=== PATIENT | female | born 1975 | race Caucasian/White ===

== ENCOUNTER 2020-03-28 08:00 | Outpatient (REF) | payer MEDICAID, SELFPAY | END 2020-03-28 08:01 | disposition home or self-care (01) | LOC: HO.MDS 08:00 | PROVIDERS: PCP Internal Medicine; Visit Provider Internal Medicine | DX: D50.9 Iron deficiency anemia, unspecified (principal) | CPT/HCPCS: 96365; 96366; J1200; J1750; Q0163 ==

== ENCOUNTER 2020-04-02 19:00 | Emergency (ER) | payer MEDICAID, SELFPAY ==
--- NOTE | 2020-04-02 | ECG_ITS ---
Test Reason : CHEST PAIN Blood Pressure : / mmHG Vent. Rate : 079 BPM Atrial Rate : 079 BPM P-R Int : 168 ms QRS Dur : 082 ms QT Int : 376 ms P-R-T Axes : 053 043 049 degrees QTc Int : 431 ms Normal sinus rhythm Normal ECG When compared with ECG of 06-JUN-2018 22:05, No significant change was found Referred By: Generic ED Physician Electronically Signed By:SCOTTIE ROBERTSON MD
[2020-04-02 19:54] VITALS: BP 144/78; PULSE 77; RESP 16; TEMP 37.1; O2SAT 100; BMI 31.6
[2020-04-02 21:05] VITALS: BP 138/58; PULSE 75; RESP 18; TEMP 36.9; O2SAT 100
--- NOTE | 2020-04-02 21:17 | ED_ITS ---
HPI - Chest Pain General Chief Complaint: Chest Pain Stated Complaint: CHEST PAIN Time Seen by Provider: 04/02/20 21:17 History of Present Illness HPI narrative: This is a 45-year-old female with history of hypertension diabetes and presents with 1 week of intermittent tightness of the chest that lasts anywhere from 15-30 minutes there is no association with time of day or activity. These episodes are not associated with dizziness, headache, nausea, diaphoresis and they do not radiate anywhere. In addition, patient denies any fevers, chills, shortness of breath, sore throat, GI symptoms, or symptoms. She does self endorse that she return from [place] on 03/13 and was COVID-19 tested at that time and found to be negative. Related Data Previous Rx's Medication Instructions Recorded alum-mag hydroxide-simeth [Maalox 20 ml PO TID #1 ea 04/02/20 Maximum Strength] alum-mag hydroxide-simeth [Maalox 20 ml PO TID #1 ea 04/03/20 Maximum Strength] Allergies Allergy/AdvReac Type Severity Reaction Status Date / Time pork derived (porcine) Allergy Intermediate SWOLLEN Verified 04/02/20 19:56 [PORK DERIVED (PORCINE)] LIPS ITCHY THROAT HIVES latex [LATEX] Allergy Unknown RASH Verified 04/02/20 19:56 milk [MILK] Allergy Unknown HIVES,ITCHY Verified 04/02/20 19:56 THROAT, VOICE CHANGE Review of Systems Review of Systems: Pertinent positives and negatives as stated in the HPI. GEN: no fevers, chills, fatigue HEENT: no nasal congestion, sore throat, ear pain NEURO: no headache, dizziness, focal weakness PULM: no cough, shortness of breath CV: +chest pain, no palpitations/LE edema ABD: no abdominal pain, nausea, vomiting, diarrhea : no dysuria, urgency, frequency SKIN: no rash ROS otherwise negative x 10 PMFSH Past Medical History Source: nursing notes reviewed Social History Social History Advance Directives: No Advance Directives Information Provided: Yes Physical Exam Vital Signs and I&O and Narrative: Vital Signs and I&O: Vital Signs Temp 98.2 F 04/03/20 00:00 Pulse 63 04/03/20 00:00 Resp 16 04/02/20 22:26 BP 127/79 04/03/20 00:00 Pulse Ox 99 04/03/20 00:00 Intake & Output 04/02/20 04/02/20 04/03/20 06:59 18:59 06:59 Weight 86.183 kg Body Mass Index 31.6 VITAL SIGNS: Reviewed. GENERAL: Well developed, well nourished, in no acute distress. HEAD: Normocephalic/atraumatic, EYES: PERRLA, EOMI intact without pain, no nystagmus/pallor/icterus noted EARS: Ext canals without abnormality, TMs non-bulging and non-erythematous NOSE: Nares patent bilateral OROPHARYNX: no oral lesions noted, posterior pharynx clear and non-erythematous without noted tonsillar enlargement/erythema/exudates NECK: Supple, no adenopathy LUNGS: Normal breath sounds. No adventitious sounds or accessory muscle use. SpO2<> CARDIOVASCULAR: Regular rate and rhythm without noted murmurs, no JVD or lower extremity edema. ABDOMEN: Soft, non-tender, non-distended with bowel sounds. No rigidity. No guarding. No palpable masses or hernias noted MUSCULOSKELETAL: No tenderness, deformities, or effusions noted on gross inspection. EXTREMITIES: No cyanosis, clubbing or edema. SKIN: Inspection of the skin reveals no rashes, ulcerations, jaundice, pallor, or petechiae. NEUROLOGIC: Alert and oriented x 4. Strength and sensation to light touch were grossly intact x 4. Course Course Course Narrative: This is a 45-year-old female with history and clinical presentation consistent with likely acid reflux as she endorses that she has run out of medication. The timing and presentation are inconsistent with cardiac ischemia, pneumonia, PE, however these will be further evaluated with the exception of PE. Patient received a GI cocktail with good resolution of symptoms on re-evaluation. On review of all investigations there are no acute findings to suggest pneumonia, cardiac ischemia. All results and findings were discussed with the patient at bedside and she was informed that she will be discharged with a prescription to manage her acid. Due to her allergies I had to prescribe Maalox. MDM - Chest Pain Lab Data Result diagrams: 04/02/20 22:22 04/02/20 22:22 Labs: Lab Results 04/02/20 04/02/20 04/02/20 Range/Units 22:22 22:22 22:22 WBC 8.4 (4.8-10.8) X10*3/uL RBC 4.28 (4.20-5.50) X10*6/uL Hgb 9.3 L (12.0-16.0) g/dl Hct 31.3 L (37-47) % MCV 73.1 L (80-98) fL MCH 21.7 L (27.0-33.0) pg MCHC 29.7 L (31.0-35.0) g/dl RDW 20.0 H (11.0-16.0) % Plt Count 344 (160-400) X10*3/uL MPV 10.7 (9.4-12.3) fL Immature Gran % (Auto) 0.4 (0.0-0.4) % Neut % (Auto) 49.9 (45-73) % Lymph % (Auto) 36.5 (20-40) % [place] % (Auto) 11.3 H (2-11) % Eos % (Auto) 1.5 (0-4) % Baso % (Auto) 0.4 (0-2) % Lymph # (Auto) 3.1 (1.2-4.9) X10*3/uL [place] # (Auto) 1.0 (0.1-1.2) X10*3/uL Eos # (Auto) 0.1 (0.0-0.4) X10*3/uL Baso # (Auto) 0.0 (0.0-0.2) X10*3/uL Abs Immat Gran (auto) 0.03 (0.00-0.03) X10*3/uL Absolute Neuts (auto) 4.2 (2.0-8.3) X10*3/uL Absolute Nucleated RBC 0.000 (0.0-0.012) X10*3/uL Nucleated RBC % (auto) 0.0 (0.0-0.2) /100WBC Sodium 139 (135-145) mmol/L Potassium 4.3 (3.3-5.1) mmol/l Chloride 106 (96-108) mmol/L Carbon Dioxide 26 (22-29) mmol/L Anion Gap 11 L (12-20) BUN 15 (9-16) mg/dL Creatinine 0.73 (0.5-1.4) mg/dL Estim Creat Clear Calc 103.3 Estimated GFR > 60 Random Glucose 141 H (60-115) mg/dL Calcium 8.7 (8.4-10.2) mg/dL Total Bilirubin 0.4 (0.0-1.0) mg/dL AST 57 H (5-31) U/L ALT 48 H (0-31) U/L Alkaline Phosphatase 70 (39-117) U/L Troponin I High Sens < 3.5 (<3.5-17.0) ng/L Total Protein 6.9 (6.5-8.0) g/dL Albumin 3.9 (3.5-5.0) g/dL Lipase 27 (8-78) U/L ECG Data ECG #1: Attestation: I personally reviewed and interpreted this ECG as follows: Prior ECG tracings: available for review (06/06/2018) Interpretation: NSR, HR-79, no evidence of ischemia Discharge Plan Discharge Clinical Impression: Chest pain due to GERD Patient Disposition: Home, Self-Care Instructions: Diet for Stomach Ulcers and Gastritis (ED), Gastroesophageal Reflux Disease (ED) Additional Instructions: The patient and/or family acknowledge understanding of results (as applicable), diagnosis, treatment plan, need for follow up, and symptoms that should prompt a return to the emergency room. Prescriptions: New alum-mag hydroxide-simeth [Maalox Maximum Strength] 400-400-40 mg/5 mL suspension 20 ml PO TID Qty: 1 RF: 0 alum-mag hydroxide-simeth [Maalox Maximum Strength] 400-400-40 mg/5 mL suspension 20 ml PO TID Qty: 1 RF: 0 Referrals: Physician,Unknown [Primary Care Provider] - 2 days Print Language: Mongolian
--- NOTE | 2020-04-02 21:38 | XR_ITS ---
EXAMINATION: XR CHEST CLINICAL INFORMATION: Chest pain COMPARISON: 06/06/2018 TECHNIQUE: 2 views of the chest were obtained. FINDINGS: No significant abnormality is noted involving the heart, lungs, mediastinum, bony thorax or soft tissues. IMPRESSION: Unremarkable examination.
[2020-04-02] MEDS: Lidocaine HCl Viscous 2 % 15 ML SOLUTION 10 ML MUCOUS MEM (21:57)
[2020-04-02] MEDS: Magnesium Hydrox/Alum Hydrox 30 ML ORAL.SUSP PO (21:58)
[2020-04-02 22:25] LABS: MANUAL DIFF FLAG NO
[2020-04-02 22:26] VITALS: BP 135/82; PULSE 66; RESP 16; TEMP 36.7; O2SAT 96
[2020-04-02 22:26] LABS: Basophils Percent Auto 0.4 % (0-2); Eosinophils Absolute Auto 0.1 X10*3/uL (0.0-0.4); Eosinophils Percent Auto 1.5 % (0-4); Hematocrit 31.3 % (37-47); Hemoglobin 9.3 g/dl (12.0-16.0); Imm Gran Abs Auto 0.03 X10*3/uL (0.00-0.03); Imm Gran Pct Auto 0.4 % (0.0-0.4); Lymphocytes Absolute Auto 3.1 X10*3/uL (1.2-4.9); Lymphocytes Percent Auto 36.5 % (20-40); Mean Corpuscular HGB Conc 29.7 g/dl (31.0-35.0); Mean Corpuscular Hemoglobin 21.7 pg (27.0-33.0); Mean Corpuscular Volume 73.1 fL (80-98); Mean Platelet Volume 10.7 fL (9.4-12.3); Monocytes Percent Auto 11.3 % (2-11); Neutrophils Absolute Auto 4.2 X10*3/uL (2.0-8.3); Neutrophils Percent Auto 49.9 % (45-73); Platelet Count 344 X10*3/uL (160-400); Red Blood Count 4.28 X10*6/uL (4.20-5.50); White Blood Count 8.4 X10*3/uL (4.8-10.8)
--- NOTE | 2020-04-02 22:27 | MHC.HEMONC ---
PATIENT WAS PUT ON BROWN SOURER BY THIS PCT .
[2020-04-02 22:54] LABS: Alanine Aminotransferase 48 U/L (0-31); Albumin Level 3.9 g/dL (3.5-5.0); Alkaline Phosphatase 70 U/L (39-117); Anion Gap 11 (12-20); Aspartate Amino Transferase 57 U/L (5-31); Bilirubin Total 0.4 mg/dL (0.0-1.0); Blood Urea Nitrogen 15 mg/dL (9-16); Calcium 8.7 mg/dL (8.4-10.2); Carbon Dioxide 26 mmol/L (22-29); Chloride 106 mmol/L (96-108); Creatinine Clr Calc Pharmacy 103.3; Estimated Glomerular Filt Rate > 60; Glucose Random 141 mg/dL (60-115); Lipase 27 U/L (8-78); Potassium 4.3 mmol/l (3.3-5.1); Sodium 139 mmol/L (135-145); Total Protein 6.9 g/dL (6.5-8.0)
[2020-04-02 22:59] LABS: Troponin-I High Sensitivity < 3.5 ng/L (<3.5-17.0)
[2020-04-03] VITALS: BP 127/79; PULSE 63; TEMP 36.8; O2SAT 99
== END 2020-04-03 00:54 | disposition home or self-care (01) ==
PROVIDERS: Emergency Provider Student in an Organized Health Care Education/Training Program
DX: R07.9 Chest pain, unspecified (principal); K21.9 Gastro-esophageal reflux disease without esophagitis; I10 Essential (primary) hypertension; E11.9 Type 2 diabetes mellitus without complications
CPT/HCPCS: 36415; 71046; 80053; 83690; 84484; 85025; 93005; 99283; 99284